=== PATIENT | male | born 1935 | race Caucasian/White ===

== ENCOUNTER 2017-12-06 07:31 | Observation (INO) | payer OTHER ==
[~2017-12-06] VITALS: Ht 172.7 cm; Wt 69.3 kg
[2017-12-06 08:09] LABS: HEMATOCRIT 43.3 % (38.0-50.0); HEMOGLOBIN 14.8 G/DL (12.5-16.6); MCH 30.4 PG (29.0-34.0); MCHC 34.2 G/DL (30.0-36.0); MCV 88.9 FL (86-99); PLATELET COUNT 162 K/uL (156-360); RBC DIS.WIDTH-CV 12.8 % (11.8-14.6); RBC DIS.WIDTH-SD 41.8 % (39-53); RED BLOOD COUNT 4.87 M/uL (4.00-5.50); WHITE BLOOD COUNT 7.9 K/uL (4.1-10.2)
[2017-12-06 08:19] LABS: ALBUMIN 4.1 g/dL (3.2-4.8)
[2017-12-06 08:20] LABS: CHLORIDE 102 mEq/L (99-109); POTASSIUM 4.4 mEq/L (3.7-5.4); SODIUM 138 mEq/L (136-147)
[2017-12-06 08:22] LABS: GLUCOSE 156 mg/dL (70-99); TOTAL PROTEIN 6.8 g/dL (6.4-8.3)
[2017-12-06 08:24] LABS: TOTAL BILIRUBIN 0.9 mg/dL (0.0-1.0)
[2017-12-06 08:25] LABS: ALKALINE PHOSPHATASE 87 IU/L (3-129)
[2017-12-06 08:27] LABS: AST (GOT) 22 IU/L (2-34); UREA NITROGEN (BUN) 30 mg/dL (9-23)
[2017-12-06 08:28] LABS: ALT (GPT) 16 IU/L (3-49); GFR ESTIMATE (CALCULATED) > 59 mL/min/ (58.99-99999)
[2017-12-06 08:29] LABS: LIPASE 34 U/L (1.0-51.0)
[2017-12-06 08:38] LABS: TROP-I INTERPRETATION NEGATIVE; TROPONIN-I < 0.01 ng/mL (0.0-0.30)
[2017-12-06 10:15] LABS: APPEARANCE CLEAR ((CLEAR)); BILIRUBIN NEGATIVE; BLOOD NEGATIVE; COLOR YELLOW ((YELLOW)); GLUCOSE (STRIP) NEGATIVE; KETONES NEGATIVE; LEUKOCYTES NEGATIVE; NITRITE NEGATIVE; PROTEIN (STRIP) NEGATIVE; SPECIFIC GRAVITY 1.044 (1.000-1.030); UCUL ADDED? NO; UROBILINOGEN 0.2 MG/DL (0.2-1.0)
[2017-12-06] MEDS ORDERED: FLONASE16 G1 BOTH NARES (11:42)
[2017-12-06] MEDS ORDERED: MILK OF MAGN PO (11:42)
[2017-12-06] MEDS ORDERED: LUMIGAN 0.50 DROP/22 BOTH EYES (11:43)
[2017-12-06] MEDS ORDERED: PROSCAR5 MG PO (11:43)
[2017-12-06] MEDS ORDERED: HYTRIN10 MG PO (11:43)
[2017-12-06] MEDS ORDERED: FLUOROURACIL40 GM TP (11:46)
[2017-12-06 13:26] VITALS: BP 144/64
[2017-12-06 17:50] VITALS: BP 141/71
[2017-12-07 00:41] VITALS: BP 130/70
[2017-12-07 04:56] VITALS: BP 112/73
[2017-12-07 06:17] LABS: HEMATOCRIT 37.1 % (38.0-50.0); MCH 29.7 PG (29.0-34.0); MCHC 33.4 G/DL (30.0-36.0); PLATELET COUNT 151 K/uL (156-360); RBC DIS.WIDTH-SD 42.7 % (39-53); RED BLOOD COUNT 4.17 M/uL (4.00-5.50); WHITE BLOOD COUNT 6.2 K/uL (4.1-10.2)
[2017-12-07 06:24] LABS: HEMOGLOBIN 12.4 G/DL (12.5-16.6)
[2017-12-07 06:38] LABS: CHLORIDE 109 MEQ/L (99-109); CREATININE 0.8 MG/DL (0.6-1.3); GFR ESTIMATE (CALCULATED) > 59 mL/min/ (58.99-99999); POTASSIUM 3.9 MEQ/L (3.7-5.4); SODIUM 141 MEQ/L (136-147); UREA NITROGEN (BUN) 13 mg/dL (9-23)
[2017-12-07 06:40] LABS: GLUCOSE 91 mg/dL (70-99)
[2017-12-07 08:05] VITALS: BP 153/73
== END 2017-12-07 11:28 | disposition home or self-care (01) ==
LOC: EME 07:31 → EDOF 11:13 → ENRESERV 11:15 → 4SOUTH 13:01 → EDPENDDISTM 12-07 → EDPENDDISDT 12-07 → 4SOUTH 12-07 11:28
PROVIDERS: Internal Medicine; Nurse Practitioner Family
DX: R55 Syncope and collapse (principal); R11.2 Nausea with vomiting, unspecified; I10 Essential (primary) hypertension; H40.9 Unspecified glaucoma; N40.1 Benign prostatic hyperplasia with lower urinary tract symptoms; R35.0 Frequency of micturition; Z85.828 Personal history of other malignant neoplasm of skin; Z82.49 Family history of ischemic heart disease and other diseases of the circulatory system
CPT/HCPCS: 70450; 70551; 71046; 74177; 80048; 80053; 81003; 83605; 83690; 84484; 85027; 87040; 93005; 99281; 99285; G0378; J1650; J7030